=== PATIENT | male | born 1990 | race African-American/Black ===

== ENCOUNTER 2024-02-06 17:23 | Emergency (ER) | payer OTHER ==
[2024-02-06 17:42] VITALS: TEMP 98; BMI 36.3
[2024-02-06] MEDS ORDERED: ACETAMINOPHEN INJECTION 100 ML IVPB ONE (19:10)
[2024-02-06] MEDS: ACETAMINOPHEN 1000 MG/100 ML BAG IVPB ONE (19:28)
[2024-02-06 19:40] LABS: INR 1.1 (0.83-1.09); PROTHROMBIN TIME (PATIENT) 12.7 SEC (9.7-13.0)
[2024-02-06 19:43] LABS: ACTIVATED PTT 24.9 SECONDS (25.2-36.5)
[2024-02-06 19:47] LABS: BASO % 0.6 % (0-2.0); EOS % 0.2 % (0-4.5); HEMATOCRIT 41.1 % (35.4-49); HEMOGLOBIN 13.5 GM/dL (11.7-16.9); LYMPH % 9.4 % (8-40); MCHC 32.8 g/dl (32.0-35.9); MEAN CELL VOLUME 85.4 fl (80-96); MEAN PLT VOLUME 7.4 fl (7.5-11.1); MONO % 6.7 % (3.8-10.2); NEUT % 83.1 % (42.8-82.8); PLATELET COUNT 268 10^3/uL (134-434); RBC 4.81 M/mm3 (4.00-5.60); RDW 15.4 % (11.9-15.9); WHITE BLOOD COUNT 15.2 K/mm3 (4.0-10.0)
[2024-02-06 19:58] LABS: POTASSIUM 4.2 mmol/L (3.5-5.1)
[2024-02-06 20:00] LABS: CALCIUM 9.2 mg/dL (8.5-10.1)
[2024-02-06 20:01] LABS: ALBUMIN 3.8 g/dl (3.4-5.0); MAGNESIUM 1.6 mg/dL (1.8-2.4)
[2024-02-06 20:04] LABS: CREATININE 0.9 mg/dL (0.55-1.3)
[2024-02-06 20:05] LABS: BILIRUBIN,TOTAL 0.3 mg/dL (0.2-1); TOT PROT 7.5 g/dl (6.4-8.2)
[2024-02-06 21:39] LABS: URINE APPEARANCE CLEAR; URINE BILIRUBIN NEGATIVE (NEGATIVE); URINE COLOR YELLOW; URINE GLUCOSE (UA) NEGATIVE (NEGATIVE); URINE KETONE NEGATIVE (NEGATIVE); URINE LEUK ESTERASE NEGATIVE (NEGATIVE); URINE NITRITE NEGATIVE (NEGATIVE); URINE PROTEIN NEGATIVE (NEGATIVE); URINE UROBILINOGEN 0.2 mg/dL (0.2-1.0)
[2024-02-06 22:20] VITALS: BP 133/75; PULSE 87; RESP 20
== END 2024-02-06 22:21 | disposition home or self-care (01) ==
LOC: JER 17:23
PROC: 3E030NZ Introduction of Analgesics, Hypnotics, Sedatives into Peripheral Vein, Open Approach (ICD-10-PCS; principal; 2024-02-06)
DX: R07.9 Chest pain, unspecified (principal); R06.02 Shortness of breath; Y99.0 Civilian activity done for income or pay; Z20.822 Contact with and (suspected) exposure to COVID-19
CPT/HCPCS: 0241U-QW; 36415; 71045-TC-FY; 80053; 81003; 83735; 84484; 85025; 85379; 85610; 85730; 87086; 93005; 93010; 99285-25; J0131